=== PATIENT | male | born 1975 | race Caucasian/White ===

== ENCOUNTER → 2024-07-14 | Day surgery (SDC) | payer BC ==
[~2024-07-14] MED LIST: ADDERALL 15 MG15 MG PO; DEXAMETHASONE SOD PHOS INJ 4 MG/ML SDV ONE; FENTANYL CITRATE/PF 100MCG/2 ML INJ ONE; FLOMAX0.4 MG PO; LACTATED RINGER'S 1,000 ML ONE; LIDOCAINE HCL 2% LOCAL INJ 5 ML SDV VIAL INJ ONE; LOSARTAN POTAS100 MG PO; ONDANSETRON HCL INJ 2MG/ML 2ML 2 MG/ML VIAL ONE; PROPOFOL IV EMULSION 10 MG/ML 20 ML VIAL ONE; SEVOFLURANE INHAL SOLN 250 ML PEN BTL ONE
[2024-07-14] MEDS: HYDROMORPHONE 1MG/1ML INJ ONE (08:35)
[2024-07-14] MEDS: HYDROCODONE/APAP 5MG-325MG TAB ONE (09:00)
[2024-07-14 09:20] VITALS: BP 132/91; PULSE 73; RESP 17; O2SAT 97
== END | disposition home or self-care (01) ==
LOC: OR 05:25
PROVIDERS: ATTEND Specialist
DX: G56.03 Carpal tunnel syndrome, bilateral upper limbs (principal); I10 Essential (primary) hypertension; N40.0 Benign prostatic hyperplasia without lower urinary tract symptoms; F90.9 Attention-deficit hyperactivity disorder, unspecified type; Z79.899 Other long term (current) drug therapy
CPT/HCPCS: 29848; J0690; J1100; J1171; J2003; J2405; J2704; J3010; J7121